=== PATIENT | female | born 1940 | race Two or more races ===

== ENCOUNTER 2017-07-02 11:11 | Inpatient (IN) | payer MEDICARE, MEDICAID ==
[~2017-07-02] VITALS: Ht 165.1 cm; Wt 62.0 kg
[2017-07-02 12:03] LABS: Basophils # (auto) 0 uL; Basophils % (auto) 0.3 % (0.0-2.0); Eosinophils # (auto) 0 uL; Eosinophils % (auto) 0.6 % (0.0-7.0); Hematocrit 34.4 % (36.0-46.0); Hemoglobin 11.9 g/dL (12.2-16.2); Lymphocytes # (auto) 1.1 uL; Lymphocytes % (auto) 23.4 % (10.0-50.0); Mean Corpuscular Hemoglobin 31.5 pg (28.0-32.0); Mean Corpuscular Hgb Conc. 34.7 g/dL (32.0-36.0); Mean Corpuscular Volume 90.8 fL (80.0-100.0); Monocytes # (auto) 0.4 uL; Neutrophils # (auto) 3.2 uL; Neutrophils % (auto) 66.7 % (37.0-80.0); Platelet Count (auto) 191 10^3/uL (140-450); Red Cell Distribution Width 12.4 % (11.8-14.3); White Blood Cell 4.8 10^3/uL (4.4-10.8)
[2017-07-02 12:15] LABS: Albumin 3.6 g/dL (3.4-5.0); Alkaline Phosphatase 85 U/L (45-117); Anion Gap 6 (5-15); Aspartate Aminotransferase 22 U/L (15-37); BUN/Creatinine Ratio 15.6; Bilirubin, Total 0.5 mg/dL (0.2-1.0); Blood Urea Nitrogen 17 mg/dL (7-18); Carbon Dioxide 30 mmol/L (21-32); Chloride 86 mmol/L (98-107); GFR African American 63 mL/min; GFR Non-African American 52 mL/min; Glucose 263 mg/dL (74-106); Magnesium 2.1 mg/dL (1.6-2.6); Potassium 4.1 mmol/L (3.5-5.1); Sodium 122 mmol/L (136-145); Total Protein 8.1 g/dL (6.4-8.2)
[2017-07-02 14:17] LABS: Urine Bilirubin Negative (Negative); Urine Blood Negative /uL (Negative); Urine Glucose TRACE mg/dL (Normal); Urine Ketone Negative (Negative); Urine Nitrite Negative (Negative); Urine RBC <1 /hpf (0 - 4); Urine Squamous Epithelial Cell FEW /hpf (<5); Urine Urobilinogen Normal (Negative); Urine pH 6.5 (5.0-8.0)
[2017-07-02 14:18] LABS: Urine Color Straw (Yellow)
[2017-07-02] MEDS ORDERED: SODIUM CHLORIDE 0.9% 1,000 ML IV ONE (15:30)
[2017-07-02] MEDS ORDERED: LORazepam 0.5 MG TAB PO PRN (16:15)
[2017-07-02] MEDS ORDERED: NITROGLYCERIN 0.4 MG SL TAB SL PRN (16:15)
[2017-07-02] MEDS ORDERED: PROMETHAZINE HCL 25 MG/ML 1ML IV PRN (16:15)
[2017-07-02] MEDS ORDERED: MORPHINE SULF INJ 2 MG/ML SYRINGE 1ML IV PRN ×2 (16:15)
[2017-07-02] MEDS ORDERED: DEXTROSE (50%) 50ML SYRG IV PRN (16:15)
[2017-07-02] MEDS ORDERED: TEMAZEPAM 15 MG CAP PO PRN (16:15)
[2017-07-02] MEDS ORDERED: HYDROcodone-ACET 5/325MG TAB PO PRN (16:15)
[2017-07-02] MEDS ORDERED: ACETAMINOPHEN 500 MG TAB PO PRN (16:15)
[2017-07-02] MEDS ORDERED: LACTULOSE 20Gm/30ML SOLN PO PRN (16:15)
[2017-07-02] MEDS: ACCU-CHEK COMFORT CURVE STRIP VI SCH ×2 (16:35→22:20)
[2017-07-02] MEDS: InsuLIN REG 1unit/0.01ml Soln (100units/ml) SC SCH ×2 (16:35→22:25)
[2017-07-02 17:13] LABS: Temperature: 23.3 C (20.0-25.0)
[2017-07-02] MEDS: SODIUM CHLORIDE 0.9% 1,000 ML IV SCH (17:28)
[2017-07-02 17:57] VITALS: BP 140/73
[2017-07-02] MEDS ORDERED: LORazepam 2MG/ML-1ML VIAL IV PRN (20:30)
[2017-07-02 22:27] VITALS: BP 136/74
[2017-07-03] MEDS: SODIUM CHLORIDE 0.9% 1,000 ML IV SCH (04:34)
[2017-07-03 05:34] VITALS: BP 141/77
[2017-07-03] MEDS: ACCU-CHEK COMFORT CURVE STRIP VI SCH ×2 (06:37→11:30)
[2017-07-03] MEDS: InsuLIN REG 1unit/0.01ml Soln (100units/ml) SC SCH ×2 (06:43→11:30)
[2017-07-03 09:00] VITALS: BP 149/87
[2017-07-03] MEDS ORDERED: ENOXAPARIN SOD 40 MG/0.4 ML SYRINGE SC SCH (10:00)
[2017-07-03 12:23] VITALS: BP 141/83
[2017-07-03] MEDS ORDERED: METOPROLOL TARTRATE 25 MG TAB PO ONE (15:15)
[2017-07-03] MEDS ORDERED: DABIGATRAN 75 MG CAP PO SCH (15:17)
[2017-07-03 15:25] VITALS: BP 141/83
== END 2017-07-03 17:05 | disposition home or self-care (01) | DRG 312 ==
LOC: ER 11:11 → EDBD 11:11 → TELE 11:12 → TELE-WESTW 17:30
PROVIDERS: ADMIT Internal Medicine; ATTEND Internal Medicine
DX: R55 Syncope and collapse (principal); E11.65 Type 2 diabetes mellitus with hyperglycemia; G30.9 Alzheimer's disease, unspecified; F02.80 Dementia in other diseases classified elsewhere, unspecified severity, without behavioral disturbance, psychotic disturbance, mood disturbance, and anxiety; E87.1 Hypo-osmolality and hyponatremia; I48.91 Unspecified atrial fibrillation; I10 Essential (primary) hypertension; D63.8 Anemia in other chronic diseases classified elsewhere; J44.9 Chronic obstructive pulmonary disease, unspecified; W18.39XA Other fall on same level, initial encounter; R42 Dizziness and giddiness; F17.200 Nicotine dependence, unspecified, uncomplicated; E78.5 Hyperlipidemia, unspecified; M25.78 Osteophyte, vertebrae; K76.9 Liver disease, unspecified; M48.02 Spinal stenosis, cervical region; Z82.49 Family history of ischemic heart disease and other diseases of the circulatory system; I25.2 Old myocardial infarction; Z83.3 Family history of diabetes mellitus; Y93.89 Activity, other specified; Y92.098 Other place in other non-institutional residence as the place of occurrence of the external cause; Y99.8 Other external cause status; Z90.49 Acquired absence of other specified parts of digestive tract; Z88.6 Allergy status to analgesic agent; Z88.4 Allergy status to anesthetic agent; Z88.5 Allergy status to narcotic agent; Z88.2 Allergy status to sulfonamides; Z81.8 Family history of other mental and behavioral disorders; Z90.710 Acquired absence of both cervix and uterus
CPT/HCPCS: 36415; 70450; 70551; 72125; 72141; 80053; 81001; 82550; 82607; 82746; 82962; 83036; 83735; 84443; 84484; 85025; 85652; 93005; 93886; 94761; 96360; J1815

== ENCOUNTER 2017-09-21 10:46 | Inpatient (IN) | payer MEDICARE, MEDICAID ==
[~2017-09-21] VITALS: Ht 157.5 cm; Wt 70.1 kg
[~2017-09-21 10:46] MED LIST: ACET-1156 PO; ALBUAER3 IN; AML5T PO; B-COCAP34 OR; CHOL20007 PO; DABI75CA3 PO; DICL1GEL26 TOP; DOCU100T15 PO; DONE5TAB28 PO; FLUT1INH6 IN; FLUT50SP; FURO40TA4 PO; GABA-497 PO; HYDR-4683 PO; IPRAAER6 IN; MEMA28CA PO; METO-169 PO; METO5TAB2 PO; MONT10TA34 PO; NORT25CA PO; OLAN20TA13 PO; OMEP20CA74 PO; ONDA4TAB5 PO; POLY33504 PO; POTA8TAB2 PO; SIMV-13 PO; SUM25T PO
[2017-09-21 12:07] LABS: Basophils # (auto) 0 uL; Basophils % (auto) 0.4 % (0.0-2.0); Eosinophils # (auto) 0 uL; Eosinophils % (auto) 0.5 % (0.0-7.0); Hematocrit 28.9 % (36.0-46.0); Hemoglobin 9.6 g/dL (12.2-16.2); Lymphocytes # (auto) 0.7 uL; Lymphocytes % (auto) 13.1 % (10.0-50.0); Mean Corpuscular Hemoglobin 31.6 pg (28.0-32.0); Mean Corpuscular Hgb Conc. 33.3 g/dL (32.0-36.0); Mean Corpuscular Volume 94.8 fL (80.0-100.0); Mean Platelet Volume 7.8 fL (6.9-10.8); Monocytes # (auto) 0.3 uL; Monocytes % (auto) 5.8 % (0.0-12.0); Neutrophils # (auto) 4.5 uL; Neutrophils % (auto) 80.2 % (37.0-80.0); Nucleated Red Blood Cells % 0.1 %; Platelet Count (auto) 176 10^3/uL (140-450); Red Cell Distribution Width 13.7 % (11.8-14.3); White Blood Cell 5.6 10^3/uL (4.4-10.8)
[2017-09-21 12:26] LABS: INR 1.03 (0.9-1.15); Partial Thromboplastin Time 32.2 sec (22.64-33.71); Prothrombin Time 11.2 sec (9.37-12.3)
[2017-09-21 12:39] LABS: Albumin 3.1 g/dL (3.4-5.0); BUN/Creatinine Ratio 19.5; Bilirubin, Total 0.3 mg/dL (0.2-1.0); Calcium 8.6 mg/dL (8.5-10.1); Potassium 4.1 mmol/L (3.5-5.1); Total Protein 6.9 g/dL (6.4-8.2)
[2017-09-21 13:20] LABS: Urine RBC None Seen /hpf (0 - 4)
[2017-09-21 14:11] LABS: Urine Bilirubin Negative (Negative); Urine Blood Negative /uL (Negative); Urine Color Yellow (Yellow); Urine Glucose 2+ mg/dL (Normal); Urine Ketone Negative (Negative); Urine Nitrite Negative (Negative); Urine Squamous Epithelial Cell FEW /hpf (<5); Urine Urobilinogen Normal (Negative)
[2017-09-21] MEDS ORDERED: MORPHINE SULF INJ 2 MG/ML SYRINGE 1ML IV PRN (15:15)
[2017-09-21] MEDS ORDERED: DEXTROSE (50%) 50ML SYRG IV PRN (15:15)
[2017-09-21] MEDS ORDERED: VENTOLIN MDI IN SCH (15:15)
[2017-09-21] MEDS ORDERED: PROMETHAZINE HCL 25 MG/ML 1ML IV PRN (15:15)
[2017-09-21] MEDS ORDERED: NITROGLYCERIN 0.4 MG SL TAB SL PRN (15:15)
[2017-09-21] MEDS ORDERED: ACETAMINOPHEN 500 MG TAB PO PRN (15:15)
[2017-09-21] MEDS ORDERED: LORazepam 0.5 MG TAB PO PRN (15:15)
[2017-09-21] MEDS: SODIUM CHLORIDE 0.9% 1,000 ML IV SCH (15:32)
[2017-09-21] MEDS: ACCU-CHEK COMFORT CURVE STRIP VI SCH ×2 (15:38→20:00)
[2017-09-21] MEDS: InsuLIN REG 1unit/0.01ml Soln (100units/ml) SC SCH ×2 (15:38→22:14)
[2017-09-21] MEDS: metroNIDAZOLE 500MG/100ML 100 ML IV SCH ×2 (17:38→23:57)
[2017-09-21 18:26] LABS: Hematocrit 30.1 % (36.0-46.0); Hemoglobin 10.3 g/dL (12.2-16.2)
[2017-09-21 20:30] VITALS: BP 129/67
[2017-09-21 22:00] VITALS: BP 129/67
[2017-09-21] MEDS ORDERED: OMEPRAZOLE 20MG/10ML ORAL SUSP PO SCH (22:00)
[2017-09-21] MEDS: OLANZapine 5 MG TAB PO SCH (22:12)
[2017-09-21] MEDS: NORTRIPTYLINE HCL 10 MG CAP PO SCH (22:12)
[2017-09-21] MEDS: DONEPEZIL HYDROCHLORIDE 5 MG TAB PO SCH (22:12)
[2017-09-21] MEDS: ATORVASTATIN 20 MG TAB PO SCH (22:12)
[2017-09-21] MEDS: DOCUSATE SOD 100 MG CAP PO SCH (22:13)
[2017-09-21] MEDS: METOPROLOL SUCCINATE XL 50 MG TAB PO SCH (22:13)
[2017-09-21] MEDS: GABAPENTIN 300 MG CAP PO SCH (22:13)
[2017-09-21] MEDS: METOCLOPRAMIDE HCL 10 MG TAB PO SCH (22:13)
[2017-09-22] VITALS (8 sets, daily range): BP systolic 129–154; BP diastolic 64–84
[2017-09-22 00:49] LABS: Hematocrit 29.8 % (36.0-46.0); Hemoglobin 10.1 g/dL (12.2-16.2)
[2017-09-22] MEDS: ACCU-CHEK COMFORT CURVE STRIP VI SCH ×6 (01:00→21:59)
[2017-09-22] MEDS: InsuLIN REG 1unit/0.01ml Soln (100units/ml) SC SCH ×6 (01:00→21:59)
[2017-09-22] MEDS: SODIUM CHLORIDE 0.9% 1,000 ML IV SCH ×3 (01:03→14:17)
[2017-09-22 05:40] LABS: Basophils # (auto) 0 uL; Basophils % (auto) 0.6 % (0.0-2.0); Eosinophils # (auto) 0.1 uL; Eosinophils % (auto) 1.9 % (0.0-7.0); Hematocrit 31.3 % (36.0-46.0); Hemoglobin 10.6 g/dL (12.2-16.2); Lymphocytes # (auto) 1.1 uL; Lymphocytes % (auto) 29.9 % (10.0-50.0); Mean Corpuscular Hemoglobin 32.1 pg (28.0-32.0); Mean Corpuscular Hgb Conc. 34.1 g/dL (32.0-36.0); Mean Corpuscular Volume 94.3 fL (80.0-100.0); Mean Platelet Volume 7.9 fL (6.9-10.8); Monocytes # (auto) 0.4 uL; Monocytes % (auto) 10.6 % (0.0-12.0); Neutrophils # (auto) 2.1 uL; Platelet Count (auto) 188 10^3/uL (140-450); Red Cell Distribution Width 13.9 % (11.8-14.3); White Blood Cell 3.6 10^3/uL (4.4-10.8)
[2017-09-22] MEDS: metroNIDAZOLE 500MG/100ML 100 ML IV SCH ×2 (05:45→11:30)
[2017-09-22] MEDS: METOCLOPRAMIDE HCL 10 MG TAB PO SCH ×3 (05:45→21:41)
[2017-09-22 06:13] LABS: Bilirubin, Total 0.5 mg/dL (0.2-1.0); Calcium 8.9 mg/dL (8.5-10.1); Potassium 3.7 mmol/L (3.5-5.1)
[2017-09-22] MEDS: FLUTICASONE PROP NASAL SPR 0.05 % (50MCG) 16GM SCH (09:46)
[2017-09-22] MEDS: CHOLECALCIFEROL (VITD3) 1,000 UNIT TAB PO SCH (09:49)
[2017-09-22] MEDS: GABAPENTIN 300 MG CAP PO SCH ×2 (09:50→21:41)
[2017-09-22] MEDS: amLODIPine BESYLATE 5 MG TAB PO SCH (09:50)
[2017-09-22] MEDS: ATORVASTATIN 20 MG TAB PO SCH (09:50)
[2017-09-22] MEDS: MONTELUKAST SODIUM 10 MG TAB PO SCH (09:50)
[2017-09-22] MEDS: METOPROLOL SUCCINATE XL 50 MG TAB PO SCH ×2 (09:50→21:42)
[2017-09-22] MEDS: POLYETHYLENE GLYCOL 17 GM PWDR PO SCH (09:51)
[2017-09-22] MEDS: DOCUSATE SOD 100 MG CAP PO SCH ×2 (09:51→21:43)
[2017-09-22] MEDS: PANTOPRAZOLE 40 MG TAB PO SCH (10:01)
[2017-09-22] MEDS ORDERED: LACTULOSE 20Gm/30ML SOLN PO PRN (11:00)
[2017-09-22] MEDS ORDERED: DEXTROSE (50%) 50ML SYRG IV PRN (14:15)
[2017-09-22] MEDS ORDERED: ALBUTEROL SULF 2.5 MG/0.5ML(0.5%) NEB SOLN NEB PRN (15:45)
[2017-09-22] MEDS: ALBUTEROL SULF 2.5 MG/0.5ML(0.5%) NEB SOLN NEB SCH (19:35)
[2017-09-22] MEDS: IPRATROPIUM BROM 0.5 MG/2.5ML INH SOL NEB SCH (19:35)
[2017-09-22] MEDS: BUDESONIDE (INHALATION) 0.5 MG/2 ML NEB NEB SCH (19:36)
[2017-09-22] MEDS: DABIGATRAN 75 MG CAP PO SCH (21:41)
[2017-09-22] MEDS: DONEPEZIL HYDROCHLORIDE 5 MG TAB PO SCH (21:41)
[2017-09-22] MEDS: MEMANTINE HCL 5 MG TAB PO SCH (21:41)
[2017-09-22] MEDS: OLANZapine 5 MG TAB PO SCH (21:41)
[2017-09-22] MEDS: NORTRIPTYLINE HCL 10 MG CAP PO SCH (21:41)
[2017-09-23] MEDS: IPRATROPIUM BROM 0.5 MG/2.5ML INH SOL NEB SCH ×3 (00:37→11:57)
[2017-09-23] MEDS: ALBUTEROL SULF 2.5 MG/0.5ML(0.5%) NEB SOLN NEB SCH ×3 (00:37→11:57)
[2017-09-23 01:23] VITALS: BP 134/68
[2017-09-23 05:00] VITALS: BP 152/75
[2017-09-23 05:49] LABS: Basophils # (auto) 0 uL; Basophils % (auto) 0.4 % (0.0-2.0); Eosinophils # (auto) 0.1 uL; Eosinophils % (auto) 1.5 % (0.0-7.0); Hemoglobin 10.2 g/dL (12.2-16.2); Lymphocytes # (auto) 1.1 uL; Lymphocytes % (auto) 26.8 % (10.0-50.0); Mean Corpuscular Hemoglobin 32.2 pg (28.0-32.0); Mean Corpuscular Hgb Conc. 34.1 g/dL (32.0-36.0); Mean Corpuscular Volume 94.5 fL (80.0-100.0); Monocytes # (auto) 0.4 uL; Monocytes % (auto) 10.9 % (0.0-12.0); Neutrophils # (auto) 2.4 uL; Neutrophils % (auto) 60.4 % (37.0-80.0); Nucleated Red Blood Cells % 0.1 %; Platelet Count (auto) 173 10^3/uL (140-450); Red Cell Distribution Width 13.7 % (11.8-14.3)
[2017-09-23 06:05] LABS: Calcium 8.8 mg/dL (8.5-10.1); Potassium 4.1 mmol/L (3.5-5.1)
[2017-09-23 06:07] LABS: BUN/Creatinine Ratio 13.8
[2017-09-23] MEDS: ACCU-CHEK COMFORT CURVE STRIP VI SCH ×2 (06:53→11:36)
[2017-09-23] MEDS: METOCLOPRAMIDE HCL 10 MG TAB PO SCH ×2 (06:53→14:00)
[2017-09-23] MEDS: InsuLIN REG 1unit/0.01ml Soln (100units/ml) SC SCH ×2 (06:54→11:36)
[2017-09-23] MEDS: BUDESONIDE (INHALATION) 0.5 MG/2 ML NEB NEB SCH (07:10)
[2017-09-23 08:00] VITALS: BP 135/64
[2017-09-23 09:00] VITALS: BP 135/64
[2017-09-23] MEDS: FLUTICASONE PROP NASAL SPR 0.05 % (50MCG) 16GM SCH (09:45)
[2017-09-23] MEDS: MONTELUKAST SODIUM 10 MG TAB PO SCH (09:45)
[2017-09-23] MEDS: PANTOPRAZOLE 40 MG TAB PO SCH (09:45)
[2017-09-23] MEDS: GABAPENTIN 300 MG CAP PO SCH (09:45)
[2017-09-23] MEDS: DOCUSATE SOD 100 MG CAP PO SCH (09:45)
[2017-09-23] MEDS: amLODIPine BESYLATE 5 MG TAB PO SCH (09:46)
[2017-09-23] MEDS: DABIGATRAN 75 MG CAP PO SCH (09:46)
[2017-09-23] MEDS: METOPROLOL SUCCINATE XL 50 MG TAB PO SCH (09:46)
[2017-09-23] MEDS: CHOLECALCIFEROL (VITD3) 1,000 UNIT TAB PO SCH (09:46)
[2017-09-23] MEDS: POLYETHYLENE GLYCOL 17 GM PWDR PO SCH (09:47)
[2017-09-23] MEDS: MEMANTINE HCL 5 MG TAB PO SCH (09:47)
[2017-09-23] MEDS: SODIUM CHLORIDE 0.9% 1,000 ML IV SCH (09:54)
[2017-09-23 13:00] VITALS: BP 136/76
[2017-09-23] MEDS ORDERED: LACT10SO3 PO (14:08)
[2017-09-23 14:30] VITALS: BP 136/76
== END 2017-09-23 16:40 | disposition home health service (06) | DRG 394 ==
LOC: ER 10:46 → EDBD 10:46 → TELE 10:47 → TELE-WESTW 20:07
PROVIDERS: ADMIT Internal Medicine; ATTEND Internal Medicine
DX: K64.8 Other hemorrhoids (principal); K92.2 Gastrointestinal hemorrhage, unspecified; D68.69 Other thrombophilia; E11.21 Type 2 diabetes mellitus with diabetic nephropathy; E11.22 Type 2 diabetes mellitus with diabetic chronic kidney disease; I50.32 Chronic diastolic (congestive) heart failure; I13.0 Hypertensive heart and chronic kidney disease with heart failure and stage 1 through stage 4 chronic kidney disease, or unspecified chronic kidney disease; Z66 Do not resuscitate; K59.00 Constipation, unspecified; I48.0 Paroxysmal atrial fibrillation; N18.9 Chronic kidney disease, unspecified; F03.90 Unspecified dementia, unspecified severity, without behavioral disturbance, psychotic disturbance, mood disturbance, and anxiety; D50.9 Iron deficiency anemia, unspecified; D63.8 Anemia in other chronic diseases classified elsewhere; F32.9 Major depressive disorder, single episode, unspecified; J44.9 Chronic obstructive pulmonary disease, unspecified; Z82.49 Family history of ischemic heart disease and other diseases of the circulatory system; Z83.3 Family history of diabetes mellitus; I25.2 Old myocardial infarction; Z86.73 Personal history of transient ischemic attack (TIA), and cerebral infarction without residual deficits; Z90.49 Acquired absence of other specified parts of digestive tract; Z79.4 Long term (current) use of insulin; Z79.899 Other long term (current) drug therapy; N18.2 Chronic kidney disease, stage 2 (mild)
CPT/HCPCS: 36415; 51702; 71010; 74176; 80048; 80053; 80061; 81001; 82150; 82270; 82378; 82962; 83036; 83690; 83735; 83880; 85014; 85018; 85025; 85045; 85610; 85652; 85730; 86141; 87081; 87493; 94640; 96361; 96365; 97163; J1815; J3490

== ENCOUNTER 2018-03-27 19:54 | Inpatient (IN) | payer MEDICARE, MEDICAID ==
[~2018-03-27] VITALS: Ht 167.6 cm; Wt 75.8 kg
[~2018-03-27 19:54] MED LIST changes: -DONE5TAB28 PO; +DONE5TAB31 PO; -GABA-497 PO; +GABA300C10 PO; +LACT10SO3 PO
[2018-03-27] MEDS ORDERED: PIPERACILLIN-TAZOB 3.375GM 100 ML IV ONE (21:00)
[2018-03-27] MEDS ORDERED: SODIUM CHLORIDE 0.9% 1,000 ML IV ONE (21:00)
[2018-03-27] MEDS ORDERED: ACETAMINOPHEN 325 MG TAB PO ONE (21:00)
[2018-03-27 21:25] LABS: Basophils # (auto) 0 uL; Basophils % (auto) 0.2 % (0.0-2.0); Eosinophils # (auto) 0 uL; Eosinophils % (auto) 0.2 % (0.0-7.0); Hematocrit 28.7 % (36.0-46.0); Hemoglobin 9.8 g/dL (12.2-16.2); Lymphocytes # (auto) 0.8 uL; Lymphocytes % (auto) 10.4 % (10.0-50.0); Mean Corpuscular Hemoglobin 32.4 pg (28.0-32.0); Mean Corpuscular Hgb Conc. 34.2 g/dL (32.0-36.0); Mean Corpuscular Volume 94.6 fL (80.0-100.0); Monocytes # (auto) 0.7 uL; Monocytes % (auto) 9.3 % (0.0-12.0); Neutrophils % (auto) 79.9 % (37.0-80.0); Nucleated Red Blood Cells % 0.1 %; Platelet Count (auto) 144 10^3/uL (140-450); Red Blood Cells 3.03 10^6/uL (4.0-5.20); Red Cell Distribution Width 12.8 % (11.8-14.3); White Blood Cell 7.6 10^3/uL (4.4-10.8)
[2018-03-27 21:51] LABS: Alanine Aminotransferase 310 U/L (13-56); Albumin 2.8 g/dL (3.4-5.0); Alkaline Phosphatase 180 U/L (45-117); Anion Gap 9 (5-15); Aspartate Aminotransferase 232 U/L (15-37); Bilirubin, Total 0.8 mg/dL (0.2-1.0); Blood Alcohol < 3.0 mg/dL (0-5); Blood Urea Nitrogen 35 mg/dL (7-18); Calcium 8.2 mg/dL (8.5-10.1); Carbon Dioxide 27 mmol/L (21-32); Chloride 100 mmol/L (98-107); GFR African American 34 mL/min; GFR Non-African American 28 mL/min; Glucose 318 mg/dL (74-106); Magnesium 2.1 mg/dL (1.6-2.6); Potassium 3.9 mmol/L (3.5-5.1); Sodium 136 mmol/L (136-145); Total Protein 7.1 g/dL (6.4-8.2)
[2018-03-27] MEDS ORDERED: ETOMIDATE (2MG/ML) 20ML VIAL IV ONE (22:00)
[2018-03-27] MEDS ORDERED: MIDAZOLAM HCL 5 MG/ML-1ML VIAL ONE (22:00)
[2018-03-27 22:08] LABS: INR 1.07 (0.9-1.15); Partial Thromboplastin Time 41.3 sec (23.78-33.04); Prothrombin Time 11.4 sec (9.27-12.13)
[2018-03-27] MEDS ORDERED: MIDAZOLAM DRIP 50 mg/50mL 0 ML IV ONE (22:11)
[2018-03-27] MEDS ORDERED: NOREPINEPHRINE 8 MG/250ML KIT 0 ML IV ONE (22:11)
[2018-03-27 22:32] LABS: Urine Bacteria NONE SEEN /hpf (None Seen); Urine Blood Negative /uL (Negative); Urine Specific Gravity 1.015 (1.001-1.035); Urine WBC 1 /hpf (0 - 5)
[2018-03-27 22:42] LABS: Alcohol, Urine < 3.0 mg/dL (0-5); Amphetamine Screen, Urine NEGATIVE (NEGATIVE); Barbiturate Scree,Urine NEGATIVE (NEGATIVE); Benzodiazephine Screen, Urine NEGATIVE (NEGATIVE); Cannabinoid Screen, Urine NEGATIVE (NEGATIVE); Cocaine Screen, Urine NEGATIVE (NEGATIVE); Opiate Scree,Urine NEGATIVE (NEGATIVE); Phencyclidine Screen, Urine NEGATIVE (NEGATIVE)
[2018-03-28] VITALS (7 sets, daily range): BP systolic 117–133; BP diastolic 49–76
[2018-03-28] MEDS ORDERED: LORazepam 0.5 MG TAB PO PRN (03:00)
[2018-03-28] MEDS ORDERED: ONDANSETRON HCL 4 MG/2 ML VIAL IV PRN (03:00)
[2018-03-28] MEDS ORDERED: ALBUTEROL SULF 2.5 MG/0.5ML(0.5%) NEB SOLN NEB PRN (03:00)
[2018-03-28] MEDS ORDERED: DEXTROSE (50%) 50ML SYRG IV PRN (03:00)
[2018-03-28] MEDS ORDERED: HYDROcodone-ACET 5/325MG TAB PO PRN (03:00)
[2018-03-28] MEDS ORDERED: IPRATROPIUM BROM 0.5 MG/2.5ML INH SOL NEB PRN (03:00)
[2018-03-28] MEDS: AZITHROMYCIN 500MG/ 250ML 250 ML IV SCH (04:21)
[2018-03-28] MEDS ORDERED: INSU70IN3 SC (05:05)
[2018-03-28] MEDS: ACCU-CHEK COMFORT CURVE STRIP VI SCH ×4 (06:16→22:21)
[2018-03-28] MEDS: InsuLIN REG 1unit/0.01ml Soln (100units/ml) SC SCH ×3 (06:28→17:09)
[2018-03-28 07:27] LABS: Amylase 42 U/L (25-115); Lipase 82 U/L (73-393)
[2018-03-28] MEDS: ACETAMINOPHEN 500 MG TAB PO PRN ×2 (08:44→17:34)
[2018-03-28] MEDS: cefTRIAXone 1GM/10ml IVPUSH 10 ML IV SCH (08:44)
[2018-03-28] MEDS: FUROSEMIDE 20 MG TAB PO SCH (09:51)
[2018-03-28] MEDS ORDERED: NORTRIPTYLINE HCL 10 MG CAP PO SCH (22:00)
[2018-03-28] MEDS ORDERED: DONEPEZIL HYDROCHLORIDE 5 MG TAB PO SCH (22:00)
[2018-03-28] MEDS ORDERED: MONTELUKAST SODIUM 10 MG TAB PO SCH (22:00)
[2018-03-28] MEDS ORDERED: InsuLIN REG 1unit/0.01ml Soln (100units/ml) SC SCH (22:00)
[2018-03-28] MEDS ORDERED: METOPROLOL SUCCINATE XL 50 MG TAB PO ONE (22:45)
[2018-03-29] MEDS: AZITHROMYCIN 500MG/ 250ML 250 ML IV SCH (03:51)
[2018-03-29 05:02] VITALS: BP 137/71
[2018-03-29] MEDS: ACCU-CHEK COMFORT CURVE STRIP VI SCH ×2 (06:08→11:30)
[2018-03-29] MEDS: InsuLIN REG 1unit/0.01ml Soln (100units/ml) SC SCH ×2 (06:13→11:30)
[2018-03-29 07:04] LABS: Basophils # (auto) 0 uL; Basophils % (auto) 0.2 % (0.0-2.0); Eosinophils # (auto) 0 uL; Eosinophils % (auto) 0.5 % (0.0-7.0); Hematocrit 29.4 % (36.0-46.0); Hemoglobin 10.1 g/dL (12.2-16.2); Lymphocytes # (auto) 0.7 uL; Lymphocytes % (auto) 11.4 % (10.0-50.0); Mean Corpuscular Hemoglobin 32.2 pg (28.0-32.0); Mean Corpuscular Hgb Conc. 34.4 g/dL (32.0-36.0); Mean Corpuscular Volume 93.6 fL (80.0-100.0); Monocytes # (auto) 0.4 uL; Monocytes % (auto) 6.4 % (0.0-12.0); Neutrophils # (auto) 4.7 uL; Neutrophils % (auto) 81.5 % (37.0-80.0); Platelet Count (auto) 160 10^3/uL (140-450); Red Blood Cells 3.15 10^6/uL (4.0-5.20); Red Cell Distribution Width 12.8 % (11.8-14.3); White Blood Cell 5.8 10^3/uL (4.4-10.8)
[2018-03-29 07:26] LABS: Albumin 2.6 g/dL (3.4-5.0); BUN/Creatinine Ratio 21.7; Bilirubin, Total 0.6 mg/dL (0.2-1.0); Calcium 8.8 mg/dL (8.5-10.1); Potassium 3.7 mmol/L (3.5-5.1)
[2018-03-29] MEDS ORDERED: METOPROLOL SUCCINATE XL 50 MG TAB PO ONE (07:30)
[2018-03-29 09:00] VITALS: BP 143/84
[2018-03-29] MEDS: cefTRIAXone 1GM/10ml IVPUSH 10 ML IV SCH (09:07)
[2018-03-29] MEDS ORDERED: METOPROLOL SUCCINATE XL 50 MG TAB PO SCH (10:00)
[2018-03-29 12:35] VITALS: BP 132/74
[2018-03-29] MEDS: FUROSEMIDE 20 MG TAB PO SCH (13:25)
== END 2018-03-29 13:15 | disposition home or self-care (01) | DRG 871 ==
LOC: EDBD 19:54 → ER 19:56 → TELE 19:57 → TELE-CENTR 03-28 03:57
PROVIDERS: ADMIT Nurse Practitioner Family; ATTEND Nurse Practitioner Family
DX: A41.9 Sepsis, unspecified organism (principal); G93.41 Metabolic encephalopathy; J18.1 Lobar pneumonia, unspecified organism; E44.0 Moderate protein-calorie malnutrition; I13.0 Hypertensive heart and chronic kidney disease with heart failure and stage 1 through stage 4 chronic kidney disease, or unspecified chronic kidney disease; J44.0 Chronic obstructive pulmonary disease with (acute) lower respiratory infection; D63.1 Anemia in chronic kidney disease; E11.22 Type 2 diabetes mellitus with diabetic chronic kidney disease; E11.65 Type 2 diabetes mellitus with hyperglycemia; E83.51 Hypocalcemia; F03.90 Unspecified dementia, unspecified severity, without behavioral disturbance, psychotic disturbance, mood disturbance, and anxiety; I50.9 Heart failure, unspecified; K74.60 Unspecified cirrhosis of liver; I48.91 Unspecified atrial fibrillation; R79.89 Other specified abnormal findings of blood chemistry; E66.01 Morbid (severe) obesity due to excess calories; N18.3 Chronic kidney disease, stage 3 (moderate); Z66 Do not resuscitate; Z79.01 Long term (current) use of anticoagulants; Z79.4 Long term (current) use of insulin; Z82.49 Family history of ischemic heart disease and other diseases of the circulatory system; Z83.3 Family history of diabetes mellitus; Z86.73 Personal history of transient ischemic attack (TIA), and cerebral infarction without residual deficits; Z79.899 Other long term (current) drug therapy; Z68.27 Body mass index [BMI] 27.0-27.9, adult; Z88.6 Allergy status to analgesic agent; Z88.2 Allergy status to sulfonamides; Z88.1 Allergy status to other antibiotic agents; Z88.5 Allergy status to narcotic agent; I25.2 Old myocardial infarction; Z90.49 Acquired absence of other specified parts of digestive tract
CPT/HCPCS: 36415; 36600; 70450; 71045; 80053; 80307; 80320; 81001; 82140; 82150; 82805; 82962; 83605; 83690; 83735; 84484; 85025; 85610; 85730; 86141; 87040; 87077; 87086; 87186; 93005; 96365; 96366; 99291; J1815; J2250; J2543

== ENCOUNTER 2018-03-30 13:45 | Inpatient (IN) | payer MEDICARE, MEDICAID ==
[~2018-03-30] VITALS: Ht 165.1 cm; Wt 72.6 kg
[~2018-03-30 13:45] MED LIST changes: +INSU70IN3 SC
[2018-03-30] MEDS ORDERED: SODIUM CHLORIDE 0.9% 1,000 ML IV ONE (14:16)
[2018-03-30 14:17] LABS: Basophils # (auto) 0 uL; Basophils % (auto) 0.3 % (0.0-2.0); Eosinophils # (auto) 0.1 uL; Eosinophils % (auto) 1.1 % (0.0-7.0); Hematocrit 31.4 % (36.0-46.0); Hemoglobin 10.7 g/dL (12.2-16.2); Lymphocytes # (auto) 0.8 uL; Lymphocytes % (auto) 15.6 % (10.0-50.0); Mean Corpuscular Hemoglobin 32.2 pg (28.0-32.0); Mean Corpuscular Volume 94.4 fL (80.0-100.0); Monocytes # (auto) 0.5 uL; Monocytes % (auto) 10.5 % (0.0-12.0); Neutrophils # (auto) 3.5 uL; Neutrophils % (auto) 72.5 % (37.0-80.0); Platelet Count (auto) 187 10^3/uL (140-450); Red Blood Cells 3.32 10^6/uL (4.0-5.20); Red Cell Distribution Width 12.8 % (11.8-14.3); White Blood Cell 4.9 10^3/uL (4.4-10.8)
[2018-03-30 14:35] LABS: Alanine Aminotransferase 357 U/L (13-56); Albumin 2.4 g/dL (3.4-5.0); Anion Gap 10 (5-15); BUN/Creatinine Ratio 18.9; Blood Urea Nitrogen 30 mg/dL (7-18); Carbon Dioxide 29 mmol/L (21-32); Chloride 98 mmol/L (98-107); GFR African American 40 mL/min; GFR Non-African American 33 mL/min; Glucose 381 mg/dL (74-106); Magnesium 1.9 mg/dL (1.6-2.6); Potassium 3.9 mmol/L (3.5-5.1); Sodium 137 mmol/L (136-145)
[2018-03-30 14:40] LABS: Alkaline Phosphatase 252 U/L (45-117); Aspartate Aminotransferase 130 U/L (15-37); Bilirubin, Total 0.4 mg/dL (0.2-1.0); Total Protein 7.3 g/dL (6.4-8.2)
[2018-03-30 15:06] LABS: INR 0.97 (0.9-1.15); Partial Thromboplastin Time 35.1 sec (23.78-33.04); Prothrombin Time 10.4 sec (9.27-12.13)
[2018-03-30] MEDS ORDERED: DEXTROSE (50%) 50ML SYRG IV PRN (15:15)
[2018-03-30] MEDS ORDERED: cefTRIAXone 1GM/10ml IVPUSH 10 ML IV ONE (15:15)
[2018-03-30] MEDS ORDERED: ENOXAPARIN SOD 30 MG/0.3 ML SYRINGE SC ONE (15:30)
[2018-03-30 15:33] LABS: Urine Bacteria NONE SEEN /hpf (None Seen); Urine Blood Negative /uL (Negative); Urine Specific Gravity 1.006 (1.001-1.035); Urine WBC <1 /hpf (0 - 5)
[2018-03-30] MEDS ORDERED: AZITHROMYCIN 500MG/ 250ML 250 ML IV ONE (16:30)
[2018-03-30 18:30] VITALS: BP 147/88
[2018-03-30] MEDS: ACCU-CHEK COMFORT CURVE STRIP VI SCH ×2 (18:57→23:54)
[2018-03-30] MEDS: InsuLIN REG 1unit/0.01ml Soln (100units/ml) SC SCH ×2 (18:58→23:54)
[2018-03-30 20:00] VITALS: BP 140/83
[2018-03-30] MEDS: metroNIDAZOLE 500MG/100ML 100 ML IV SCH (21:29)
[2018-03-30] MEDS: LACTULOSE 20Gm/30ML SOLN PO SCH (21:29)
[2018-03-30 22:00] VITALS: BP 140/83
[2018-03-31 05:00] VITALS: BP 154/81
[2018-03-31] MEDS: metroNIDAZOLE 500MG/100ML 100 ML IV SCH ×3 (05:27→21:59)
[2018-03-31 05:46] LABS: Basophils # (auto) 0 uL; Eosinophils # (auto) 0.1 uL; Eosinophils % (auto) 1.9 % (0.0-7.0); Hematocrit 29.9 % (36.0-46.0); Hemoglobin 10.2 g/dL (12.2-16.2); Lymphocytes # (auto) 0.8 uL; Lymphocytes % (auto) 17.7 % (10.0-50.0); Mean Corpuscular Hgb Conc. 34.1 g/dL (32.0-36.0); Mean Corpuscular Volume 93.8 fL (80.0-100.0); Monocytes # (auto) 0.5 uL; Monocytes % (auto) 9.9 % (0.0-12.0); Neutrophils # (auto) 3.2 uL; Neutrophils % (auto) 69.5 % (37.0-80.0); Platelet Count (auto) 201 10^3/uL (140-450); Red Blood Cells 3.19 10^6/uL (4.0-5.20); Red Cell Distribution Width 12.6 % (11.8-14.3); White Blood Cell 4.7 10^3/uL (4.4-10.8)
[2018-03-31] MEDS: ACCU-CHEK COMFORT CURVE STRIP VI SCH ×4 (05:56→23:33)
[2018-03-31] MEDS: InsuLIN REG 1unit/0.01ml Soln (100units/ml) SC SCH ×4 (05:56→23:33)
[2018-03-31 06:28] LABS: Albumin 2.5 g/dL (3.4-5.0); Bilirubin, Total 0.4 mg/dL (0.2-1.0); Calcium 9.3 mg/dL (8.5-10.1); Potassium 3.4 mmol/L (3.5-5.1); Total Protein 7.1 g/dL (6.4-8.2)
[2018-03-31 08:54] VITALS: BP 147/84
[2018-03-31] MEDS ORDERED: amLODIPine BESYLATE 5 MG TAB PO SCH (10:00)
[2018-03-31] MEDS: PANTOPRAZOLE 40 MG/10 ML VIAL IV SCH (11:41)
[2018-03-31] MEDS: AZITHROMYCIN 500MG/ 250ML 250 ML IV SCH (11:41)
[2018-03-31] MEDS: ENOXAPARIN SOD 30 MG/0.3 ML SYRINGE SC SCH (11:42)
[2018-03-31] MEDS: cefTRIAXone 1GM/10ml IVPUSH 10 ML IV SCH (11:42)
[2018-03-31] MEDS: LACTULOSE 20Gm/30ML SOLN PO SCH ×2 (11:43→21:59)
[2018-03-31] MEDS ORDERED: POTASSIUM CHL 20 Meq TABLET PO ONE (12:00)
[2018-03-31 13:00] VITALS: BP 183/90
[2018-03-31 17:00] VITALS: BP 122/67
[2018-03-31] MEDS ORDERED: HYDR1TAB97 PO (18:22)
[2018-03-31] MEDS ORDERED: B-COTAB10 OR (18:22)
[2018-03-31] MEDS ORDERED: INSUINJ18 SC (18:22)
[2018-03-31 20:00] VITALS: BP 125/60
[2018-03-31 22:00] VITALS: BP 125/60
[2018-04-01] MEDS: metroNIDAZOLE 500MG/100ML 100 ML IV SCH ×3 (05:11→22:03)
[2018-04-01 05:57] VITALS: BP 163/84
[2018-04-01 06:09] LABS: Albumin 2.5 g/dL (3.4-5.0); BUN/Creatinine Ratio 15.8; Bilirubin, Total 0.5 mg/dL (0.2-1.0); Calcium 9.3 mg/dL (8.5-10.1); Potassium 3.8 mmol/L (3.5-5.1); Total Protein 7.2 g/dL (6.4-8.2)
[2018-04-01] MEDS: InsuLIN REG 1unit/0.01ml Soln (100units/ml) SC SCH ×3 (06:26→17:08)
[2018-04-01] MEDS: ACCU-CHEK COMFORT CURVE STRIP VI SCH ×3 (06:26→17:01)
[2018-04-01 08:30] VITALS: BP 160/91
[2018-04-01 09:00] VITALS: BP 160/91
[2018-04-01] MEDS: LACTULOSE 20Gm/30ML SOLN PO SCH ×2 (10:00→22:06)
[2018-04-01] MEDS: AZITHROMYCIN 500MG/ 250ML 250 ML IV SCH (10:00)
[2018-04-01] MEDS: PANTOPRAZOLE 40 MG/10 ML VIAL IV SCH (10:01)
[2018-04-01] MEDS: cefTRIAXone 1GM/10ml IVPUSH 10 ML IV SCH (10:01)
[2018-04-01] MEDS: ENOXAPARIN SOD 30 MG/0.3 ML SYRINGE SC SCH (10:01)
[2018-04-01] MEDS: amLODIPine BESYLATE 5 MG TAB PO SCH (10:02)
[2018-04-01] MEDS ORDERED: METOPROLOL TARTRATE 50 MG TAB PO ONE (12:45)
[2018-04-01 13:00] VITALS: BP 140/92
[2018-04-01 17:00] VITALS: BP 152/80
[2018-04-01] MEDS: DONEPEZIL HYDROCHLORIDE 5 MG TAB PO SCH (22:06)
[2018-04-01] MEDS: DABIGATRAN 75 MG CAP PO SCH (22:06)
[2018-04-01] MEDS: METOPROLOL TARTRATE 50 MG TAB PO SCH (22:14)
[2018-04-02] MEDS: InsuLIN REG 1unit/0.01ml Soln (100units/ml) SC SCH ×5 (00:30→23:30)
[2018-04-02 05:13] VITALS: BP 134/66
[2018-04-02 05:17] VITALS: BP 134/66
[2018-04-02] MEDS: ACCU-CHEK COMFORT CURVE STRIP VI SCH ×5 (05:47→23:30)
[2018-04-02] MEDS: metroNIDAZOLE 500MG/100ML 100 ML IV SCH ×3 (05:47→23:26)
[2018-04-02 06:31] LABS: Albumin 2.5 g/dL (3.4-5.0); Bilirubin, Total 0.4 mg/dL (0.2-1.0); Calcium 9.2 mg/dL (8.5-10.1)
[2018-04-02 08:15] VITALS: BP 143/77
[2018-04-02] MEDS: LACTULOSE 20Gm/30ML SOLN PO SCH ×2 (10:00→22:00)
[2018-04-02] MEDS: cefTRIAXone 1GM/10ml IVPUSH 10 ML IV SCH (10:01)
[2018-04-02] MEDS: AZITHROMYCIN 500MG/ 250ML 250 ML IV SCH (10:01)
[2018-04-02] MEDS: PANTOPRAZOLE 40 MG/10 ML VIAL IV SCH (10:01)
[2018-04-02 12:26] VITALS: BP 127/65
[2018-04-02] MEDS ORDERED: VANCOMYCIN PER PHARMACY 0 MG IV SCH (13:00)
[2018-04-02] MEDS ORDERED: HYDROcodone-ACET 5/325MG TAB PO ONE ×2 (14:30→14:45)
[2018-04-02] MEDS: DABIGATRAN 75 MG CAP PO SCH ×2 (14:32→23:26)
[2018-04-02] MEDS: amLODIPine BESYLATE 5 MG TAB PO SCH (14:33)
[2018-04-02] MEDS: METOPROLOL TARTRATE 50 MG TAB PO SCH ×2 (14:36→23:29)
[2018-04-02] MEDS ORDERED: VANCOMYCIN 1GM/250ML 250 ML IV SCH (15:00)
[2018-04-02 17:00] VITALS: BP 147/66
[2018-04-02] MEDS: HYDROcodone-ACET 5/325MG TAB PO PRN (18:06)
[2018-04-02 22:00] VITALS: BP 136/70
[2018-04-02] MEDS: DONEPEZIL HYDROCHLORIDE 5 MG TAB PO SCH (23:26)
[2018-04-03 05:00] VITALS: BP 129/74
[2018-04-03] MEDS: metroNIDAZOLE 500MG/100ML 100 ML IV SCH ×3 (05:36→21:53)
[2018-04-03] MEDS: InsuLIN REG 1unit/0.01ml Soln (100units/ml) SC SCH ×3 (06:46→17:50)
[2018-04-03] MEDS: ACCU-CHEK COMFORT CURVE STRIP VI SCH ×3 (06:46→17:50)
[2018-04-03] MEDS: HYDROcodone-ACET 5/325MG TAB PO PRN ×3 (07:50→16:19)
[2018-04-03 08:21] VITALS: BP 137/79
[2018-04-03] MEDS: PANTOPRAZOLE 40 MG/10 ML VIAL IV SCH (09:37)
[2018-04-03] MEDS: cefTRIAXone 1GM/10ml IVPUSH 10 ML IV SCH (09:37)
[2018-04-03] MEDS: METOPROLOL TARTRATE 50 MG TAB PO SCH ×2 (09:38→21:54)
[2018-04-03] MEDS: amLODIPine BESYLATE 5 MG TAB PO SCH (09:39)
[2018-04-03] MEDS: DABIGATRAN 75 MG CAP PO SCH ×2 (09:39→21:54)
[2018-04-03] MEDS: LACTULOSE 20Gm/30ML SOLN PO SCH (09:40)
[2018-04-03 11:59] VITALS: BP 136/77
[2018-04-03] MEDS ORDERED: POTASSIUM CHL 10 Meq TABLET PO ONE (13:15)
[2018-04-03] MEDS ORDERED: FUROSEMIDE 40 MG TAB PO ONE (13:15)
[2018-04-03 16:38] VITALS: BP 100/49
[2018-04-03] MEDS: INSULIN 70/30 1unit/0.01ml Susp (100units/ml) SC SCH (17:51)
[2018-04-03] MEDS: DONEPEZIL HYDROCHLORIDE 5 MG TAB PO SCH (21:54)
[2018-04-03 22:00] VITALS: BP 141/67
[2018-04-04] MEDS: ACCU-CHEK COMFORT CURVE STRIP VI SCH ×5 (00:11→23:59)
[2018-04-04] MEDS: InsuLIN REG 1unit/0.01ml Soln (100units/ml) SC SCH ×5 (00:12→23:59)
[2018-04-04 05:00] VITALS: BP 106/79
[2018-04-04] MEDS: metroNIDAZOLE 500MG/100ML 100 ML IV SCH ×3 (05:24→21:47)
[2018-04-04 06:18] LABS: Basophils # (auto) 0 uL; Basophils % (auto) 0.3 % (0.0-2.0); Eosinophils # (auto) 0.1 uL; Eosinophils % (auto) 1.1 % (0.0-7.0); Hemoglobin 10.2 g/dL (12.2-16.2); Lymphocytes % (auto) 16.1 % (10.0-50.0); Mean Corpuscular Hemoglobin 31.7 pg (28.0-32.0); Mean Corpuscular Volume 93.5 fL (80.0-100.0); Monocytes # (auto) 0.5 uL; Neutrophils # (auto) 4.6 uL; Neutrophils % (auto) 74.5 % (37.0-80.0); Platelet Count (auto) 251 10^3/uL (140-450); Red Blood Cells 3.21 10^6/uL (4.0-5.20); Red Cell Distribution Width 12.6 % (11.8-14.3); White Blood Cell 6.1 10^3/uL (4.4-10.8)
[2018-04-04 06:38] LABS: Albumin 2.5 g/dL (3.4-5.0); BUN/Creatinine Ratio 16.1; Bilirubin, Total 0.3 mg/dL (0.2-1.0); Potassium 3.6 mmol/L (3.5-5.1); Total Protein 6.9 g/dL (6.4-8.2)
[2018-04-04 08:42] VITALS: BP 154/74
[2018-04-04] MEDS: cefTRIAXone 1GM/10ml IVPUSH 10 ML IV SCH (09:45)
[2018-04-04] MEDS: INSULIN 70/30 1unit/0.01ml Susp (100units/ml) SC SCH ×2 (09:45→18:00)
[2018-04-04] MEDS: FUROSEMIDE 40 MG TAB PO SCH (09:46)
[2018-04-04] MEDS: METOPROLOL TARTRATE 50 MG TAB PO SCH ×2 (09:46→22:43)
[2018-04-04] MEDS: POTASSIUM CHL 10 Meq TABLET PO SCH (09:46)
[2018-04-04] MEDS: amLODIPine BESYLATE 5 MG TAB PO SCH (09:47)
[2018-04-04] MEDS: PANTOPRAZOLE 40 MG TAB PO SCH (09:48)
[2018-04-04] MEDS: DABIGATRAN 75 MG CAP PO SCH ×2 (09:48→21:51)
[2018-04-04 12:30] VITALS: BP 130/57
[2018-04-04 17:28] VITALS: BP 128/62
[2018-04-04] MEDS: LORazepam 0.5 MG TAB PO PRN (20:10)
[2018-04-04] MEDS: DONEPEZIL HYDROCHLORIDE 5 MG TAB PO SCH (21:48)
[2018-04-04 21:56] VITALS: BP 127/55
[2018-04-05] MEDS: ONDANSETRON HCL 4 MG/2 ML VIAL IV PRN ×2 (04:47→23:05)
[2018-04-05 05:17] VITALS: BP 127/82
[2018-04-05] MEDS: ACCU-CHEK COMFORT CURVE STRIP VI SCH ×3 (05:33→18:09)
[2018-04-05] MEDS: metroNIDAZOLE 500MG/100ML 100 ML IV SCH ×3 (05:42→22:19)
[2018-04-05] MEDS: InsuLIN REG 1unit/0.01ml Soln (100units/ml) SC SCH ×3 (05:42→18:00)
[2018-04-05 09:00] VITALS: BP 144/71
[2018-04-05] MEDS: PANTOPRAZOLE 40 MG TAB PO SCH (11:30)
[2018-04-05] MEDS: INSULIN 70/30 1unit/0.01ml Susp (100units/ml) SC SCH ×2 (11:30→18:00)
[2018-04-05] MEDS: amLODIPine BESYLATE 5 MG TAB PO SCH (11:30)
[2018-04-05] MEDS: cefTRIAXone 1GM/10ml IVPUSH 10 ML IV SCH (11:30)
[2018-04-05] MEDS: POTASSIUM CHL 10 Meq TABLET PO SCH (11:30)
[2018-04-05] MEDS: FUROSEMIDE 40 MG TAB PO SCH (11:30)
[2018-04-05] MEDS: DABIGATRAN 75 MG CAP PO SCH ×2 (11:30→22:21)
[2018-04-05] MEDS: METOPROLOL TARTRATE 50 MG TAB PO SCH ×2 (11:30→22:22)
[2018-04-05 12:42] VITALS: BP_SYST 124; BP_SYST 133; BP_DIAS 56; BP_DIAS 74
[2018-04-05 17:29] VITALS: BP 142/73
[2018-04-05] MEDS: LORazepam 0.5 MG TAB PO PRN (19:28)
[2018-04-05 22:00] VITALS: BP 133/63
[2018-04-05] MEDS: DONEPEZIL HYDROCHLORIDE 5 MG TAB PO SCH (22:22)
[2018-04-06] MEDS: ACCU-CHEK COMFORT CURVE STRIP VI SCH ×4 (00:08→18:29)
[2018-04-06] MEDS ORDERED: LACTULOSE 20Gm/30ML SOLN PO ONE (01:00)
[2018-04-06 05:00] VITALS: BP 138/69
[2018-04-06] MEDS: LORazepam 0.5 MG TAB PO PRN ×2 (05:04→21:14)
[2018-04-06] MEDS: metroNIDAZOLE 500MG/100ML 100 ML IV SCH ×3 (05:26→21:13)
[2018-04-06] MEDS: InsuLIN REG 1unit/0.01ml Soln (100units/ml) SC SCH ×4 (05:26→18:31)
[2018-04-06 09:00] VITALS: BP 151/79
[2018-04-06] MEDS: cefTRIAXone 1GM/10ml IVPUSH 10 ML IV SCH (09:11)
[2018-04-06] MEDS: INSULIN 70/30 1unit/0.01ml Susp (100units/ml) SC SCH ×2 (09:11→18:31)
[2018-04-06] MEDS: POTASSIUM CHL 10 Meq TABLET PO SCH (09:12)
[2018-04-06] MEDS: FUROSEMIDE 40 MG TAB PO SCH (09:17)
[2018-04-06] MEDS: PANTOPRAZOLE 40 MG TAB PO SCH (09:17)
[2018-04-06] MEDS: amLODIPine BESYLATE 5 MG TAB PO SCH (09:18)
[2018-04-06] MEDS: DABIGATRAN 75 MG CAP PO SCH ×2 (09:18→21:14)
[2018-04-06] MEDS: Boost Glucose Control 8 Ounces PO SCH ×3 (09:20→18:33)
[2018-04-06] MEDS: METOPROLOL TARTRATE 50 MG TAB PO SCH ×2 (09:20→21:15)
[2018-04-06 12:37] VITALS: BP 122/70
[2018-04-06 18:00] VITALS: BP 134/72
[2018-04-06] MEDS: DONEPEZIL HYDROCHLORIDE 5 MG TAB PO SCH (21:14)
[2018-04-06] MEDS: HYDROcodone-ACET 5/325MG TAB PO PRN (21:14)
[2018-04-06 22:00] VITALS: BP 128/70
[2018-04-07] MEDS: HYDROcodone-ACET 5/325MG TAB PO PRN (02:55)
[2018-04-07] MEDS: LORazepam 0.5 MG TAB PO PRN (02:55)
[2018-04-07 05:00] VITALS: BP 145/80
[2018-04-07] MEDS: ACCU-CHEK COMFORT CURVE STRIP VI SCH ×5 (05:28→23:59)
[2018-04-07] MEDS: metroNIDAZOLE 500MG/100ML 100 ML IV SCH ×3 (05:28→21:37)
[2018-04-07] MEDS: InsuLIN REG 1unit/0.01ml Soln (100units/ml) SC SCH ×4 (05:29→18:42)
[2018-04-07 06:31] LABS: Basophils # (auto) 0 uL; Basophils % (auto) 0.2 % (0.0-2.0); Eosinophils # (auto) 0 uL; Eosinophils % (auto) 0.4 % (0.0-7.0); Hematocrit 29.9 % (36.0-46.0); Hemoglobin 10.4 g/dL (12.2-16.2); Lymphocytes # (auto) 0.8 uL; Lymphocytes % (auto) 10.6 % (10.0-50.0); Mean Corpuscular Hgb Conc. 34.8 g/dL (32.0-36.0); Monocytes # (auto) 0.4 uL; Monocytes % (auto) 5.6 % (0.0-12.0); Neutrophils # (auto) 6.3 uL; Neutrophils % (auto) 83.2 % (37.0-80.0); Platelet Count (auto) 293 10^3/uL (140-450); Red Blood Cells 3.25 10^6/uL (4.0-5.20); Red Cell Distribution Width 12.9 % (11.8-14.3); White Blood Cell 7.6 10^3/uL (4.4-10.8)
[2018-04-07 07:03] LABS: Albumin 2.6 g/dL (3.4-5.0); BUN/Creatinine Ratio 11.2; Bilirubin, Total 0.3 mg/dL (0.2-1.0); Calcium 8.9 mg/dL (8.5-10.1); Potassium 3.4 mmol/L (3.5-5.1); Total Protein 6.9 g/dL (6.4-8.2)
[2018-04-07] MEDS: Boost Glucose Control 8 Ounces PO SCH ×3 (08:00→18:12)
[2018-04-07] MEDS: cefTRIAXone 1GM/10ml IVPUSH 10 ML IV SCH (08:32)
[2018-04-07] MEDS: ONDANSETRON HCL 4 MG/2 ML VIAL IV PRN (08:32)
[2018-04-07 08:53] VITALS: BP 139/56
[2018-04-07] MEDS: POTASSIUM CHL 10 Meq TABLET PO SCH (11:08)
[2018-04-07] MEDS: FUROSEMIDE 40 MG TAB PO SCH (11:10)
[2018-04-07] MEDS: amLODIPine BESYLATE 5 MG TAB PO SCH (11:11)
[2018-04-07] MEDS: METOPROLOL TARTRATE 50 MG TAB PO SCH ×2 (11:11→21:37)
[2018-04-07] MEDS: DABIGATRAN 75 MG CAP PO SCH ×2 (11:12→21:37)
[2018-04-07] MEDS: PANTOPRAZOLE 40 MG TAB PO SCH (11:12)
[2018-04-07] MEDS: INSULIN 70/30 1unit/0.01ml Susp (100units/ml) SC SCH ×2 (12:00→18:43)
[2018-04-07 12:27] VITALS: BP 159/71
[2018-04-07] MEDS ORDERED: POTASSIUM CHL 10% (20 MEQ/15ML) 15ml ORAL SOLN GT ONE (13:00)
[2018-04-07] MEDS ORDERED: POTASSIUM CHL 20 Meq TABLET PO ONE (13:45)
[2018-04-07 17:00] VITALS: BP 157/73
[2018-04-07] MEDS: DONEPEZIL HYDROCHLORIDE 5 MG TAB PO SCH (21:36)
[2018-04-07 21:53] VITALS: BP 148/89
[2018-04-08] MEDS: HYDROcodone-ACET 5/325MG TAB PO PRN
[2018-04-08] MEDS: InsuLIN REG 1unit/0.01ml Soln (100units/ml) SC SCH ×3 (00:03→12:00)
[2018-04-08 04:54] VITALS: BP 124/71
[2018-04-08] MEDS: metroNIDAZOLE 500MG/100ML 100 ML IV SCH (05:40)
[2018-04-08] MEDS: ACCU-CHEK COMFORT CURVE STRIP VI SCH ×2 (05:40→11:29)
[2018-04-08] MEDS: INSULIN 70/30 1unit/0.01ml Susp (100units/ml) SC SCH (08:14)
[2018-04-08] MEDS: Boost Glucose Control 8 Ounces PO SCH ×2 (08:18→12:00)
[2018-04-08 08:47] VITALS: BP 136/79
[2018-04-08] MEDS: POTASSIUM CHL 10 Meq TABLET PO SCH (11:07)
[2018-04-08] MEDS: PANTOPRAZOLE 40 MG TAB PO SCH (11:07)
[2018-04-08] MEDS: METOPROLOL TARTRATE 50 MG TAB PO SCH (11:08)
[2018-04-08] MEDS: FUROSEMIDE 40 MG TAB PO SCH (11:08)
[2018-04-08] MEDS: cefTRIAXone 1GM/10ml IVPUSH 10 ML IV SCH (11:08)
[2018-04-08] MEDS: DABIGATRAN 75 MG CAP PO SCH (11:25)
[2018-04-08] MEDS: amLODIPine BESYLATE 5 MG TAB PO SCH (11:28)
[2018-04-08 12:41] VITALS: BP 134/50
[2018-04-08 12:49] LABS: Hepatitis B Surface Antigen Negative (Negative)
[2018-04-08 13:48] LABS: Hepatitis A Ab IgM Negative; Hepatitis B Core IgM Negative
[2018-04-10 13:13] LABS: Hepatitis C Antibody Negative (Negative)
== END 2018-04-08 15:30 | DRG 177 ==
LOC: EDBD 13:45 → EDUNIT# 13:45 → ER 13:45 → OVERFLOW 13:46 → WEST WING 17:25
PROVIDERS: ADMIT Internal Medicine; ATTEND Internal Medicine
DX: J69.0 Pneumonitis due to inhalation of food and vomit (principal); G92 Toxic encephalopathy; I50.33 Acute on chronic diastolic (congestive) heart failure; J96.00 Acute respiratory failure, unspecified whether with hypoxia or hypercapnia; E44.0 Moderate protein-calorie malnutrition; I13.0 Hypertensive heart and chronic kidney disease with heart failure and stage 1 through stage 4 chronic kidney disease, or unspecified chronic kidney disease; D68.69 Other thrombophilia; E11.65 Type 2 diabetes mellitus with hyperglycemia; E11.22 Type 2 diabetes mellitus with diabetic chronic kidney disease; N18.3 Chronic kidney disease, stage 3 (moderate); Z66 Do not resuscitate; K72.90 Hepatic failure, unspecified without coma; F03.90 Unspecified dementia, unspecified severity, without behavioral disturbance, psychotic disturbance, mood disturbance, and anxiety; I48.91 Unspecified atrial fibrillation; I70.0 Atherosclerosis of aorta; J44.9 Chronic obstructive pulmonary disease, unspecified; K74.60 Unspecified cirrhosis of liver; Z82.49 Family history of ischemic heart disease and other diseases of the circulatory system; Z83.3 Family history of diabetes mellitus; Z86.73 Personal history of transient ischemic attack (TIA), and cerebral infarction without residual deficits; Z87.01 Personal history of pneumonia (recurrent); Z79.899 Other long term (current) drug therapy; Z79.4 Long term (current) use of insulin; Z88.6 Allergy status to analgesic agent; Z88.5 Allergy status to narcotic agent; Z88.2 Allergy status to sulfonamides; Z90.49 Acquired absence of other specified parts of digestive tract
CPT/HCPCS: 36415; 36600; 51702; 70450; 71045; 74176; 80053; 80074; 81001; 82140; 82533; 82565; 82805; 82962; 83605; 83735; 84443; 84484; 85025; 85610; 85730; 87040; 87081; 92610; 93005; 96372; 96374; 96375; 97110; 97116; 97163; 97530; 99291; C9113; J1815; J2405; J3490